=== PATIENT | female | born 1950 | race Caucasian/White ===

== ENCOUNTER 2019-07-06 10:34 | Day surgery (SDC) | payer MEDICARE ==
[2019-07-04 11:35] VITALS: BMI 30.1
[~2019-07-06 10:34] MED LIST: LACTATED RINGERS 1,000 ML IV SCH
[2019-07-06] MEDS ORDERED: LIDOCAINE 1% 20 ML VIAL (10MG/ML) FOR IV START INTRADERMA ONE (11:05)
[2019-07-06 11:15] VITALS: RESP 16; TEMP 97.8
[2019-07-06] MEDS ORDERED: GLYCOPYRROLATE 0.2 MG/ML 2 ML VIAL ONE (11:40)
[2019-07-06] MEDS ORDERED: LIDOCAINE 1% INJ 10MG/ML (20 ML MDV) ONE (11:40)
[2019-07-06] MEDS ORDERED: PROPOFOL 10 MG/ML 20 ML VIAL IV ONE (11:40)
--- NOTE | 2019-07-06 12:08 | P.PCN ---
Date of Procedure: 07/06/19 Procedure(s) Performed: Brief history: Patient is a pleasant 68-year-old white female scheduled for an elective upper endoscopy as well as colonoscopy as a part of evaluation of GERD/intermittent dysphagia to solids for the last 6 months duration. She is scheduled for a screening colonoscopy today. Procedure performed: Esophagogastroduodenoscopy biopsy and dilation Colonoscopy Preoperative diagnosis: GERD/intermittent dysphagia to solids Screening for colon cancer Anesthesia: MAC Procedure: After informed consent was obtained from the patient was brought into the endoscopy unit and IV sedation was administered by anesthesia under continuous monitoring. Initially upper endoscopy was done. The Olympus GF 160 video endoscope was inserted inserted into the mouth and esophagus intubated without any difficulty and was gradually advanced into the stomach and duodenum and carefully examined. The bulb and second part of the duodenum appeared normal. The scope was then withdrawn into the stomach adequately insufflated with air and upon careful examination the antrum and body, cardia and fundus appeared normal. The scope was then withdrawn into the esophagus. The GE junction was located at 40 cm to the incisors. There was a distal esophageal stricture identified which did not impede the passage of the scope. However there was some resistance to the passage of the scope. At this time will proceed with a balloon dilation using 12-15 mm TTS balloon for total of 90 seconds. The GE junction was located at 39 cm from the incisors and appeared regular with superficial erosions consistent with LA grade C reflux esophagitis.. Rest of the esophagus appeared normal. Multiple biopsies were done from the distal esophagus to rule out eosinophilic esophagitis. Patient tolerated the procedure well. At this time the patient continued to remain sedation. Initial digital rectal examination was normal. Olympus CF 160 video colonoscope was then inserted into the rectum and gradually advanced to the cecum without any difficulty. Careful examination was performed as the scope was gradually being withdrawn. The prep was excellent. The cecum, ascending colon, transverse colon, descending colon, sigmoid colon and rectum appeared normal. Sigmoid Diverticulosis Seen. Ret roflexion was performed in the rectum and no lesions were noted. Patient tolerated the procedure well. Impression: 1. Upper Endoscopy revealed distal esophageal stricture status post balloon dilation using 12-15 mm TTS balloon and LA grade C reflux esophagus 2. Colonoscopy revealed scattered sigmoid diverticulosis but no evidence of colorectal neoplasia. Recommendations: Findings of this examination were discussed with the patient as well as as well as a family. She'll remain on a clear liquid diet for lunch today. She'll be started on Prilosec 20 mg daily. She'll follow with the biopsy results and will be seen in office in 3-4 weeks. She can have a repeat screening colonoscopy in 10 years
[2019-07-06 12:30] VITALS: BP 137/88; PULSE 80
== END 2019-07-06 13:13 | disposition home or self-care (01) ==
LOC: ORWHC2ENDO 10:34
PROVIDERS: ATTEND Internal Medicine Gastroenterology
DX: Z12.11 Encounter for screening for malignant neoplasm of colon (principal); K22.2 Esophageal obstruction; K57.30 Diverticulosis of large intestine without perforation or abscess without bleeding; K21.9 Gastro-esophageal reflux disease without esophagitis; Z79.899 Other long term (current) drug therapy
CPT/HCPCS: 43249; 43239; 88305; J2001; J2704; C1726; G0121

== ENCOUNTER 2019-09-18 05:36 | Day surgery (SDC) | payer MEDICARE ==
[~2019-09-18 05:36] MED LIST changes: +ACETAMINOPHEN TAB 500 MG TAB PO ONE; +GABAPENTIN 300 MG CAP PO ONE; +HYDROmorphone 0.5 MG/0.5 ML SYRINGE IVP PRN; -LACTATED RINGERS 1,000 ML IV SCH; +MELOXICAM 7.5 MG TAB PO ONE; +MIDAZOLAM 2 MG/2 ML VIAL IV PRN; +TRANEXAMIC ACID 1,000 MG in SODIUM CHLORIDE 0.9% 100 ML IVPB ONE
[2019-09-18] MEDS ORDERED: ROPIVACAINE 246.25 MG, EPINEPHrine 0.5 MG, KETOROLAC 30 MG, cloNIDine HCL/PF 80 MCG, WA... MISCELLANE ONE ×5 (06:00)
[2019-09-18] MEDS: DEXAMETHASONE SOD PHOSPHATE 10 MG/ML 1 ML VIAL IV ONE ×2 (06:20→06:39)
[2019-09-18] MEDS ORDERED: LIDOCAINE 1% 20 ML VIAL (10MG/ML) FOR IV START INTRADERMA ONE (06:20)
[2019-09-18] MEDS: ONDANSETRON 4 MG/2 ML VIAL IVP ONE ×2 (06:20→06:39)
[2019-09-18] MEDS: LACTATED RINGERS 1,000 ML IV SCH (06:24)
[2019-09-18] MEDS ORDERED: MIDAZOLAM 2 MG/2 ML VIAL IV ONE (06:37)
[2019-09-18] MEDS ORDERED: fentaNYL (PF) 50 MCG/ML 2 ML AMP IV ONE (06:37)
[2019-09-18] MEDS ORDERED: ROPIVACAINE 0.2%-NS ON-Q PUMP 1,090 MG, EMPTY PAIN BALL 1 EACH MISCELLANE PRN (06:58)
[2019-09-18] MEDS ORDERED: NALOXONE 0.4 MG/ML 1 ML VIAL IV PRN (06:59)
[2019-09-18] MEDS ORDERED: MAGNESIUM HYDROXIDE 2,400 MG/10 ML CUP PO PRN (06:59)
[2019-09-18] MEDS ORDERED: HYDROmorphone 0.5 MG/0.5 ML SYRINGE IVP PRN ×3 (06:59)
[2019-09-18] MEDS ORDERED: NA PHOS,M-B/NA PHOS,DI-BA 133 ML ENEMA RECTAL PRN (06:59)
[2019-09-18] MEDS ORDERED: DIAZEPAM 5 MG TAB PO PRN (06:59)
[2019-09-18] MEDS ORDERED: BISACODYL 10 MG SUPP RECTAL PRN (06:59)
[2019-09-18] MEDS ORDERED: HYDROcodone/APAP 5-325MG 1 EACH TAB PO PRN (06:59)
[2019-09-18] MEDS ORDERED: hydrOXYzine PAMOATE 25 MG CAP PO PRN (06:59)
[2019-09-18] MEDS ORDERED: ONDANSETRON 4 MG/2 ML VIAL IVP PRN (06:59)
--- NOTE | 2019-09-18 07:00 | P.ANPRN ---
Procedure Note - Anesthesia - Nerve Block Performed Right Adductor Canal Infusion Time Out Performed: Yes ([id number]) Date of Procedure: 09/18/19 Procedure Start Time: 06:37 Procedure Stop Time: 06:47 Location of Patient: PreOp Indication: Acute Post-Operative Pain, Dx/Pain Location, Requested by Surgeon Sedation Type: Sedate with meaningful contact maintained Preparation: Sterile Prep Position: Supine Catheter: Indwelling Needle Types: Pajunk Needle Gauge: 21 Ultrasound used to visualize needle placement: Yes Ultrasound used to observe medication spread: Yes Injectate: 0.5% Ropivacaine (see comment for volume) (20ML) Blood Aspirated: No Pain Paresthesia on Injection Noted: No Resistance on Injection: Normal Image Stored and Saved: Yes Events: Uneventful and Well Tolerated
[2019-09-18] MEDS ORDERED: ceFAZolin 3,000 MG in SODIUM CHLORIDE 0.9% IRRIGATIO 3,000 ML IRRIGATION ONE (07:01)
[2019-09-18] MEDS ORDERED: LACTATED RINGERS 1,000 ML IV ONE (07:44)
--- NOTE | 2019-09-18 08:33 | P.OP ---
Date of Procedure: 09/18/19 Preoperative Diagnosis: Severe osteoarthritis right knee Postoperative Diagnosis: Severe osteoarthritis right knee Procedure(s) Performed: Right total knee arthroplasty with [employer] patient specific guides Implants: Kenyon [employer] Nephew Journey II CR Oxinium cruciate retaining femoral component size 5, right [employer]hew Journey right nonporous tibial baseplate size 3 Kenyon [employer] Nephew Journey II, XLPE Deep Dished articular insert, size 9 mm, Size 3- 4 right [employer] Journey BCS resurfacing round patellar component, 29 mm All components were cemented using Palacos R bone cement. Visionaire patient specific guides The articulation is Oxinium on polyethylene. Anesthesia: spinal Surgeon: Nato Alexander Lamination Inspector #1: Yvette Cooper Estimated Blood Loss (ml): 50 Pathology: other (Bone and cartilage) Condition: stable Disposition: PACU Indications for Procedure: After failure of conservative treatment we discussed the surgical and nonsurgical treatment options at length. Patient wishes to proceed with a total knee arthroplasty. Complications specific to this procedure were discussed at length, including but not limited to infection, bleeding, stiffness, and nerve injury. Patient is aware of all these complications and informed consent was obtained Operative Findings: The operative findings are consistent with severe osteoarthritis of the right knee Description of Procedure: Patient was seen in the preoperative area consent was reviewed and operative site was marked with a skin marker. An adductor canal pain catheter was placed by anesthesia in the preoperative area. Patient was then brought to the operating room and given preoperative antibiotics intravenously. A spinal anesthetic was administered by the anesthesia department. A tourniquet was placed on the upper thigh and the lower extremity was prepped and draped in usual sterile fashion. A gram of transexamic acid was given. A universal timeout was then performed which confirmed the patient's name, surgical site, ALLERGIES, and consent. The lower extremity was then exsanguinated and tourniquet was inflated to 250 mmHg. A standard and anterior midline approach to the knee was performed. The skin and subcutaneous tissue was dissected down to the patellar tendon. A medial parapatellar arthrotomy was then performed. The knee was then extended, the patellar was everted, and the knee was again flexed. Anterior horns of both menisci were excised, and a release was performed to the posterior medial aspect of the knee. On gross visual inspection, there was complete loss of articular cartilage in the medial and patellofemoral joint spaces. There was also significant cartilage damage in the lateral compartment. There were multiple periarticular osteophytes. The patient specific guide was placed on the distal femur, and pinned in place. Using the patient specific guide, the distal femoral cut was performed. The cutting block was then removed and the cut was checked for flatness. The appropriate 5-in-1 cutting block was then pinned in place through the holes that were drilled through the patient specific guide. The anterior condyles were cut without notching. The posterior and chamfer cuts were performed while protecting the collateral ligaments. The cutting block was then removed. Attention was then directed to the tibia. The remaining ACL was removed with a Ronguer, and the tibia was then gently subluxed forward with a large bent knee retractor. Any remaining menisci was excised. The posterior lateral corner was cauterized in order to cauterize the lateral geniculate artery. The patient specific guide for the tibia was then placed and was held in place with pins. Pinholes were then placed for rotation of the tibial component as well. Proximal tibia was then cut and sized. Next trials were then placed with the appropriate-sized insert. The knee was able to fully extend and flex to 130 and was stable throughout all range of motion. The knee was then extended, patella everted. Patella was then measured, and then using an osteotomy guide, the patella was cut at the appropriate level. The patella was then measured and drilled and the patella trial was then placed. The knee was then taken through range of motion with the patella trial and the patella tracked normally. The knee was then extended patella trial was then removed and the patella was everted. Knee was then flexed and lug holes were drilled through the femoral trial and the femoral trial was then removed. The tibial was then exposed, and the tibial broach guide was then pinned in place after it was set for the appropriate rotation to allow for the most coverage without overhang. The tibia was then reamed and broached. The cut surfaces of bone were then irrigated with pulsatile lavage. The posterior structures were injected with the ropivacaine solution. The knee was also irrigated with Irrisept solution. The components were then opened, the cement was mixed, and the components were then cemented in place. The cement was allowed to harden with the knee in full extension. While the cement was hardening, the remaining soft tissues were then injected with a ropivacaine solution, which consisted of 246.25 mg of ropivacaine, 0.5 mg of epinephrine, 30 mg of Toradol, 80 g of clonidine, and 48.45 mL of sterile water, for a total of 100 mL of fluid injected. After the cemented hardened. The tourniquet was released, and hemostasis was obtained. A second gram of transexamic acid was given. The knee was again irrigated. The knee was again taken through range of motion and found to be stable throughout all range of motion of 0-130, and the patella tracked normally. The fascia was then closed with #2 strata fix suture. The subcutaneous tissue was closed with 3-0 Vicryl and 3-0 strata fix. Dermabond glue was used for the skin and placed with the knee in flexion. The patient was placed in a sterile silver dressing. Patient was then transferred to recovery room in stable condition. The pastrycook's assistant DANN Ribeiro was required due the complexity surgery and the need for a skilled surgical instrument technician. She assisted in positioning, draping, retraction, and closure of the wound.
--- NOTE | 2019-09-18 09:16 | XR ---
EXAMINATION TYPE: XR knee limited RT DATE OF EXAM: 09/18/2019 CLINICAL HISTORY: Right knee pain and arthritis status post total knee replacement. TECHNIQUE: Portable AP and crosstable lateral views of the right knee are obtained immediately posto peratively. COMPARISON: None FINDINGS: Metallic hardware from total right knee arthroplasty is seen and appears satisfactory in a lignment and position. There is evidence of recent surgery with diffuse soft tissue swelling and sub cutaneous emphysema noted. IMPRESSION: METALLIC HARDWARE FROM TOTAL RIGHT KNEE ARTHROPLASTY IS SATISFACTORY IN ALIGNMENT.
[2019-09-18] MEDS: HYDROcodone/APAP 5-325MG 1 EACH TAB PO PRN (14:07)
[2019-09-18] MEDS: SODIUM CHLORIDE 0.9% 1,000 ML IV SCH ×2 (14:10→20:26)
[2019-09-18] MEDS: ASPIRIN 325 MG TAB PO SCH (20:26)
[2019-09-18] MEDS ORDERED: SENNOSIDES-DOCUSATE SODIUM 1 EACH TAB PO SCH (21:00)
[2019-09-19] MEDS: HYDROcodone/APAP 5-325MG 1 EACH TAB PO PRN (00:11)
--- NOTE | 2019-09-19 01:53 | CONS ---
CONSULTATION This patient is a white female, status post consult for total knee replacement on the right leg. She has no essential medical history. Denies any depression, anxiety. No chest pain, shortness of breath. She takes medications only for osteoporosis at home and vitamin D. Fourteen-point review of systems negative except for mentioned in HPI. She is sitting up in a chair, status post surgery. Vital signs were reviewed. CARDIOVASCULAR: S1, S2. LUNGS: Clear. PSYCH: Fair mood and affect. NEUROLOGIC: Cranial nerves are intact. She is moving 4 extremities. Legs in a bandage. ASSESSMENT: 1. Status post knee replacement of the right knee. 2. History of osteoporosis. 3. Vitamin D deficiency. Continue home medicines. She appears to be stable medically at this point. I will follow up if there are any further issues. MMODL / IJN: [id number] /
[2019-09-19 03:21] VITALS: RESP 16
[2019-09-19] MEDS: LACTATED RINGERS 1,000 ML IV SCH (04:03)
--- NOTE | 2019-09-19 05:50 | P.PN ---
Progress Note - Text Progress Note Date: 09/19/19 69-year-old female status post right total knee arthroplasty postop day #1 adductor canal catheter day #2. Overall patient is doing well VAS ranges between 2-5 out of 10 in severity. Patient has ambulated, catheter site looks clean dry and intact. Denies any motor or sensory deficits. Overall patient is doing well.
[2019-09-19 07:44] VITALS: BP 114/76; PULSE 69; TEMP 98.2
[2019-09-19] MEDS: ASPIRIN 325 MG TAB PO SCH (08:23)
[2019-09-19 08:37] LABS: Basophils % (A) 0 %; Eosinophils # (A) 0.2 k/uL (0-0.7); Eosinophils % (A) 2 %; HCT 33.4 % (34.0-46.0); HGB 11.3 gm/dL (11.4-16.0); Lymphocytes # (A) 2.3 k/uL (1.0-4.8); Lymphocytes % (A) 27 %; MCH 30.3 pg (25.0-35.0); MCV 89.2 fL (80.0-100.0); Mean Platelet Volume 7.4; Monocytes # (A) 0.5 k/uL (0-1.0); Monocytes % (A) 6 %; Neutrophils # (A) 5.2 k/uL (1.3-7.7); Neutrophils % (A) 63 %; Platelet Count 264 k/uL (150-450); RBC 3.74 m/uL (3.80-5.40); RDW 12.9 % (11.5-15.5); WBC 8.2 k/uL (3.8-10.6)
[2019-09-19] MEDS ORDERED: MELOXICAM 7.5 MG TAB PO SCH (09:00)
--- NOTE | 2019-09-19 09:19 | P.DS ---
Providers Expected date of discharge: 09/19/19 Attending physician: Nato Alexander Consults: 09/18/19 06:59 Consult Physician Routine Consulting Provider: Obdulio Silva Consult Reason/Comments: medical management Do you want consulting provider notified?: Yes Primary care physician: Joe Ortiz - Discharge Diagnosis(es) (1) Osteoarthritis of right knee Current Visit: Yes Status: Acute (2) Status post total right knee replacement Current Visit: Yes Status: Acute Hospital Course: This is a 69-year-old female with known history of degenerative arthritis of the right knee. The patient presents for evaluation. After discussion and consideration patient elects to proceed with total knee arthroplasty. The patient is seen preoperatively by Dr. Alexander and medically cleared for surgery by their primary care physician. Patient is admitted to [facility] on 09/18/2019 for total knee arthroplasty. The procedures performed without complication or sequelae. The patient is doing well postoperatively. Labs and vital signs are stable on day of discharge. On day of discharge patient's knee incision is healing well. There is minimal erythema. There is no drainage noted at this time. There is minimal soft tissue swelling to the knee. Patient has full foot and ankle motion without difficulty or pain. Calf is soft and nontender to palpation. Neurovascular status to the right lower extremity is intact. Patient is discharged home in good condition. Opioid start talking form is reviewed and signed at patient bedside. Please see med rec for accurate list of home medications. Plan - Discharge Summary Discharge Rx Participant: No New Discharge Prescriptions: New Aspirin 325 mg PO BID #60 tab HYDROcodone/APAP 5-325MG [Apex 5-325] 1 - 2 tab PO Q6HR PRN #56 tab PRN Reason: Pain Sennosides [Senokot] 2 tab PO DAILY PRN #60 tablet PRN Reason: Constipation Ondansetron Odt [Zofran Odt] 1 tab PO Q8HR PRN #10 tab PRN Reason: Nausea No Action Ibandronate Sodium [Boniva] 150 mg PO QMONTH Cholecalciferol [Vitamin D3 (25 Mcg = 1000 Iu)] 1,000 unit PO DAILY Discharge Medication List Cholecalciferol [Vitamin D3 (25 Mcg = 1000 Iu)] 1,000 unit PO DAILY 07/04/19 [History] Ibandronate Sodium [Boniva] 150 mg PO QMONTH 07/04/19 [History] Aspirin 325 mg PO BID #60 tab 09/19/19 [Rx] HYDROcodone/APAP 5-325MG [Apex 5-325] 1 - 2 tab PO Q6HR PRN #56 tab 09/19/19 [Rx] Ondansetron Odt [Zofran Odt] 1 tab PO Q8HR PRN #10 tab 09/19/19 [Rx] Sennosides [Senokot] 2 tab PO DAILY PRN #60 tablet 09/19/19 [Rx] Follow up Appointment(s)/Referral(s): Nato Alexander DO [Doctor of Osteopathic Medicine] - 2 Weeks Activity/Diet/Wound Care/Special Instructions: Weightbearing as tolerated with a walker. CPM 5-6h daily. Leave dressing intact. May be removed by home care nurse or by patient in 10 days. May shower with dressing on. Recommend use of compression stockings daily for at least 2 weeks during the day to help prevent swelling and blood clots. May remove at night before sleeping. Please follow up with [facility] and call with any questions or concerns, . Discharge Disposition: HOME WITH HOME HEALTH SERVICES
[2019-09-19] MEDS: SODIUM CHLORIDE 0.9% 1,000 ML IV SCH (11:36)
== END 2019-09-19 16:19 | disposition home health service (06) ==
LOC: OR 05:36 → 4SSUR 12:54 → OR 09-19 16:19
PROVIDERS: ATTEND Orthopaedic Surgery
DX: M17.11 Unilateral primary osteoarthritis, right knee (principal); M81.0 Age-related osteoporosis without current pathological fracture; E55.9 Vitamin D deficiency, unspecified; E66.9 Obesity, unspecified; K21.9 Gastro-esophageal reflux disease without esophagitis; I83.90 Asymptomatic varicose veins of unspecified lower extremity; J30.9 Allergic rhinitis, unspecified; Z90.89 Acquired absence of other organs; Z97.3 Presence of spectacles and contact lenses; Z87.891 Personal history of nicotine dependence; Z82.49 Family history of ischemic heart disease and other diseases of the circulatory system; Z68.30 Body mass index [BMI] 30.0-30.9, adult
CPT/HCPCS: 97161; 64448; 76942; 73560; 27447; C1713; C1776; J2250; J0171; J1100; J0690 ×2; J2405; J3010; J1885; J2795 ×2; J0735; J1170; 85025; 88300

== ENCOUNTER 2019-09-22 13:40 | Emergency (ER) | payer MEDICARE ==
[2019-09-22 14:15] VITALS: RESP 18
[2019-09-22 16:28] LABS: Basophils % (A) 1 %; Eosinophils # (A) 0.5 k/uL (0-0.7); Eosinophils % (A) 6 %; HCT 35.9 % (34.0-46.0); HGB 11.7 gm/dL (11.4-16.0); Lymphocytes % (A) 26 %; MCH 28.3 pg (25.0-35.0); MCHC 32.5 g/dL (31.0-37.0); MCV 86.9 fL (80.0-100.0); Mean Platelet Volume 7.7; Monocytes # (A) 0.4 k/uL (0-1.0); Monocytes % (A) 6 %; Neutrophils # (A) 4.6 k/uL (1.3-7.7); Neutrophils % (A) 60 %; Platelet Count 321 k/uL (150-450); RBC 4.13 m/uL (3.80-5.40); RDW 12.9 % (11.5-15.5); WBC 7.7 k/uL (3.8-10.6)
[2019-09-22] MEDS ORDERED: MORPHINE SULFATE 4 MG/ML SYRINGE IVP STA (16:33)
[2019-09-22 16:37] LABS: ALT 50 U/L (4-34); AST 66 U/L (14-36); African American GFR (CKD) >90 (>60 ml/min/1.73 sqM); Albumin 3.7 g/dL (3.5-5.0); Alkaline Phosphatase 93 U/L (38-126); Anion Gap 7 mmol/L; Blood Urea Nitrogen 11 mg/dL (7-17); Calcium 8.9 mg/dL (8.4-10.2); Carbon Dioxide 25 mmol/L (22-30); Chloride 107 mmol/L (98-107); Glucose 101 mg/dL (74-99); Non-African American GFR(CKD) 85 (>60 ml/min/1.73 sqM); Potassium 3.8 mmol/L (3.5-5.1); Sodium 139 mmol/L (137-145); Total Bilirubin 1.2 mg/dL (0.2-1.3); Total Protein 6.6 g/dL (6.3-8.2)
[2019-09-22] MEDS ORDERED: CAFFEINE SODIUM BENZOATE IV SCH ×2 (17:00)
[2019-09-22] MEDS ORDERED: SODIUM CHLORIDE 0.9% IV ONE ×2 (17:00)
[2019-09-22] MEDS ORDERED: CAFFEINE SODIUM BENZOATE IV ONE ×2 (17:00)
[2019-09-22] MEDS ORDERED: SODIUM CHLORIDE 0.9% IV SCH ×2 (17:00)
--- NOTE | 2019-09-22 17:07 | ED ---
General Adult HPI - General Chief complaint: Neck Pain/Injury Stated complaint: coming in for a blood patch, post knee surgery Time Seen by Provider: 09/22/19 15:31 Source: patient, family Mode of arrival: wheelchair Limitations: no limitations - History of Present Illness Initial comments: Patient is 69-year-old female presenting to the emergency department with a chief complaint of a blood patch. Patient states she had a right knee arthroplasty and developed some neck pain. Patient reports the pain is exacerbated whenever she sat up alleviate when laying down. She does report slight nausea but no vomiting, neck stiffness, headaches, chest pain or shortness of breath. Patient reports she contacted Dr. Nickerson's office and spoke with DANN raoz who suggested to come to the ED for a blood patch. Patient denies any gait instability. Denies night sweats or chills. - Related Data Home Medications Medication Instructions Recorded Confirmed Cholecalciferol [Vitamin D3 (25 1,000 unit PO DAILY 07/04/19 09/18/19 Mcg = 1000 Iu)] Ibandronate Sodium [Boniva] 150 mg PO QMONTH 07/04/19 09/18/19 Previous Rx's Medication Instructions Recorded Aspirin 325 mg PO BID #60 tab 09/19/19 HYDROcodone/APAP 5-325MG [[place] 1 - 2 tab PO Q6HR PRN #56 tab 09/19/19 5-325] Ondansetron Odt [Zofran Odt] 1 tab PO Q8HR PRN #10 tab 09/19/19 Sennosides [Senokot] 2 tab PO DAILY PRN #60 tablet 09/19/19 Lidocaine 5% Patch [Lidoderm] 1 patch TOPICAL DAILY #6 patch 09/22/19 Allergies Allergy/AdvReac Type Severity Reaction Status Date / Time No Known Allergies Allergy Verified 09/18/19 05:57 Review of Systems ROS Statement: Those systems with pertinent positive or pertinent negative responses have been documented in the HPI. ROS Other: All systems not noted in ROS Statement are negative. Past Medical History Past Medical History: GERD/Reflux Additional Past Medical History / Comment(s): osteoporosis rt hip,rt knee pain History of Any Multi-Drug Resistant Organisms: None Reported Past Surgical History: Tonsillectomy Additional Past Surgical History / Comment(s): vein procedures x2 total knee 09/18/19 Past Anesthesia/Blood Transfusion Reactions: No Reported Reaction Smoking Status: Former smoker Past Alcohol Use History: None Reported Past Drug Use History: None Reported - Past Family History Mother Family Medical History: No Reported History Father Additional Family Medical History / Comment(s): aneurysm General Exam Limitations: no limitations General appearance: alert, in no apparent distress Head exam: Present: atraumatic, normocephalic, normal inspection Eye exam: Present: normal appearance, PERRL, EOMI Pupils: Present: normal accommodation ENT exam: Present: normal exam, mucous membranes moist Neck exam: Present: normal inspection Respiratory exam: Present: normal lung sounds bilaterally Cardiovascular Exam: Present: regular rate, normal rhythm, normal heart sounds Extremities exam: Present: normal inspection (Right knee arthroplasty), full ROM Back exam: Present: normal inspection (No signs of infection at the LP site), f ull ROM. Absent: tenderness Neurological exam: Present: alert, oriented X3 Psychiatric exam: Present: normal affect, normal mood Skin exam: Present: warm, dry, intact, normal color Course Vital Signs 09/22/19 09/22/19 14:10 17:25 Temperature 97.9 F 98.2 F Pulse Rate 85 63 Respiratory 18 18 Rate Blood Pressure 138/87 137/74 O2 Sat by Pulse 97 99 Oximetry Medical Decision Making - Medical Decision Making Patient is a 69-year-old female presenting to the emergency Department with a chief complaint of a blood patch. She was advised to come to the ED by the DANN Razo. I spoke with the physician retail assistant, who states that she spoke with anesthesia before willing to evaluate the patient and perform a blood patch. was contacted and personally evaluated the patient. He states the patient does not have a spinal headache and does not require any patches at this time. He suspecting more of musculoskeletal tenderness. he advised Lidoderm patches, I prescribed them. Patient advised to alternate between Tylenol and ibuprofen for pain control. Should return parameters were thoroughly discussed the patient was understanding and agreeable. Case discussed with physician. - Lab Data Result diagrams: 09/22/19 16:17 09/22/19 16:17 Lab Results 09/22/19 09/22/19 Range/Units 16:17 16:17 WBC 7.7 (3.8-10.6) k/uL RBC 4.13 (3.80-5.40) m/uL Hgb 11.7 (11.4-16.0) gm/dL Hct 35.9 (34.0-46.0) % MCV 86.9 (80.0-100.0) fL MCH 28.3 (25.0-35.0) pg MCHC 32.5 (31.0-37.0) g/dL RDW 12.9 (11.5-15.5) % Plt Count 321 (150-450) k/uL Neutrophils % 60 % Lymphocytes % 26 % Monocytes % 6 % Eosinophils % 6 % Basophils % 1 % Neutrophils # 4.6 (1.3-7.7) k/uL Lymphocytes # 2.0 (1.0-4.8) k/uL Monocytes # 0.4 (0-1.0) k/uL Eosinophils # 0.5 (0-0.7) k/uL Basophils # 0.0 (0-0.2) k/uL Sodium 139 (137-145) mmol/L Potassium 3.8 (3.5-5.1) mmol/L Chloride 107 (98-107) mmol/L Carbon Dioxide 25 (22-30) mmol/L Anion Gap 7 mmol/L BUN 11 (7-17) mg/dL Creatinine 0.73 (0.52-1.04) mg/dL Est GFR (CKD-EPI)AfAm >90 (>60 ml/min/1.73 sqM) Est GFR (CKD-EPI)NonAf 85 (>60 ml/min/1.73 sqM) Glucose 101 H (74-99) mg/dL Calcium 8.9 (8.4-10.2) mg/dL Total Bilirubin 1.2 (0.2-1.3) mg/dL AST 66 H (14-36) U/L ALT 50 H (4-34) U/L Alkaline Phosphatase 93 (38-126) U/L Total Protein 6.6 (6.3-8.2) g/dL Albumin 3.7 (3.5-5.0) g/dL Disposition Clinical Impression: Neck pain without injury Disposition: HOME SELF-CARE Condition: Stable Instructions (If sedation given, give patient instructions): Neck Pain (ED) Additional Instructions: Please follow up with primary care. Please return to emergency department symptoms worsen. Prescriptions: Lidocaine 5% Patch [Lidoderm] 1 patch TOPICAL DAILY #6 patch Is patient prescribed a controlled substance at d/c from ED?: No Referrals: Joe Ortiz MD [Primary Care Provider] - 1-2 days Time of Disposition: 17:07
[2019-09-22 17:28] VITALS: BP 137/74; PULSE 63; TEMP 98.2
--- NOTE | 2019-09-22 17:48 | P.PAINCN ---
History of Present Illness - Reason for Consult Consult date: 09/22/19 Possible spinal headache - Chief Complaint Neck pain - History of Present Illness Patient presents to ER with neck pain, I had received a call from the PA at [facility] earlier in the day regarding Arabella, there was a reported headache that was positional in nature since 2 days post op from her right TKA on Wednesday09/18/19. She reports pain in the neck which is worse with moving, tender to palpation over the C7/T1 area in the midline and off to the right. She denies any back pain, vision changes, headache, balance disturbance, numbness/tingling in her extremities along with normal strength in all extremities, denies any fever, chills or general malaise. She reports her pain comes and goes and is not always present with standing or sitting, but she reports if she lays still it does not hurt. She is unsure if the pain medication is helping. Review of Systems Per HPI Past Medical History Past Medical History: GERD/Reflux Additional Past Medical History / Comment(s): osteoporosis rt hip,rt knee pain History of Any Multi-Drug Resistant Organisms: None Reported Past Surgical History: Tonsillectomy Additional Past Surgical History / Comment(s): vein procedures x2 total knee 09/18/19 Past Anesthesia/Blood Transfusion Reactions: No Reported Reaction Smoking Status: Former smoker Past Alcohol Use History: None Reported Past Drug Use History: None Reported - Past Family History Mother Family Medical History: No Reported History Father Additional Family Medical History / Comment(s): aneurysm Medications and Allergies Home Medications Medication Instructions Recorded Confirmed Type Cholecalciferol [Vitamin D3 (25 1,000 unit PO DAILY 07/04/19 09/18/19 History Mcg = 1000 Iu)] Ibandronate Sodium [Boniva] 150 mg PO QMONTH 07/04/19 09/18/19 History Aspirin 325 mg PO BID #60 tab 09/19/19 Rx HYDROcodone/APAP 5-325MG [[place] 1 - 2 tab PO Q6HR PRN #56 tab 09/19/19 Rx 5-325] Ondansetron Odt [Zofran Odt] 1 tab PO Q8HR PRN #10 tab 09/19/19 Rx Sennosides [Senokot] 2 tab PO DAILY PRN #60 tablet 09/19/19 Rx Lidocaine 5% Patch [Lidoderm] 1 patch TOPICAL DAILY #6 patch 09/22/19 Rx Allergies Allergy/AdvReac Type Severity Reaction Status Date / Time No Known Allergies Allergy Verified 09/18/19 05:57 Physical Exam Vitals: Vital Signs Temp Pulse Resp BP Pulse Ox 09/22/19 17:25 98.2 F 63 18 137/74 99 09/22/19 14:10 97.9 F 85 18 138/87 97 Intake and Output 09/22/19 09/22/19 09/22/19 06:59 14:59 22:59 Other: Weight 77.111 kg General: awake and alert, good spirits Resp: no audible wheeze, no accessory muscle usage Cardio: palpable pulses, no edema Neck: moves very freely, Lhermittes sign negative, spurling negative, facet loading negative. Tender to palpation over right paraspinal muscle and spinous process in the midline. record changer tester strength is 5/5, bicep, triceps strength is 5/5 with normal reflexes Lumbar spine: Non tender to palpation, no erythema or fluctuance Lower ext: right knee incision is healing, no swelling or erythema. Results CBC & Chem 7: 09/22/19 16:17 09/22/19 16:17 Labs: Abnormal Lab Results - Last 24 Hours (Table) 09/22/19 Range/Units 16:17 Glucose 101 H (74-99) mg/dL AST 66 H (14-36) U/L ALT 50 H (4-34) U/L Assessment and Plan Assessment: Musculoskeletal pain Plan: At this time, I have discussed my findings with the patient in detail, I do not believe this is related to a post dural puncture headache, she does not have a headache and she is tender to palpation in the area. With the absence of any red flag symptoms, we will recommend discharge home with lidocaine patches to be applied to the area with oral NSAIDS. She can follow up with the surgeon on wednesday. PQRS Measure Charge Sheet Measure #130: Documentation of Current Meds in Medical Chart: Patient's medications documented in chart Measure #226: Tobacco Use: Screen & Cessation Intervention: Pt screened for tobacco use AND intervention given Measure #111: Pneumonia Vaccination: Pneumococcal vaccine administered or previously received Measure #47: Advance Care Plan: Advance care planning discussed & documented, plan or surrogate given Measure #412: Opioid Treatment Agreement: No documentation of signed opioid treatment agreement Measure #317: Preventitive Care & Scrn High Bld Press & F/U: Normal blood pressure, f/u not required Measure #128: Body Mass Index (BMI) Screening & Follow-up: BMI documented within normal parameters Measure #131: Pain Assessment & Follow-up: Follow-up PRN Measure #431: Unhealthy Alcohol Use Preventative Care & Scrn: Patient not identified as an unhealthy alcohol user PQRS Narrative: Smoking Status Former smoker Blood Pressure 137/74 Pain Intensity 6 Scale Used Numeric (1 - 10) Home Medications: Ambulatory Orders Cholecalciferol [Vitamin D3 (25 Mcg = 1000 Iu)] 1,000 unit PO DAILY 07/04/19 Ibandronate Sodium [Boniva] 150 mg PO QMONTH 07/04/19 Aspirin 325 mg PO BID #60 tab 09/19/19 HYDROcodone/APAP 5-325MG [[place] 5-325] 1 - 2 tab PO Q6HR PRN #56 tab 09/19/19 Ondansetron Odt [Zofran Odt] 1 tab PO Q8HR PRN #10 tab 09/19/19 Sennosides [Senokot] 2 tab PO DAILY PRN #60 tablet 09/19/19 Lidocaine 5% Patch [Lidoderm] 1 patch TOPICAL DAILY #6 patch 09/22/19
== END 2019-09-22 17:39 | disposition home or self-care (01) ==
LOC: EC 13:40
DX: M54.2 Cervicalgia (principal); R11.0 Nausea; Z79.82 Long term (current) use of aspirin; Z79.899 Other long term (current) drug therapy; Z87.891 Personal history of nicotine dependence; Z96.651 Presence of right artificial knee joint
CPT/HCPCS: 36415; 80053; 85025; 99284